=== PATIENT | female | born 1985 | race Caucasian/White ===

== ENCOUNTER 2017-10-08 10:10 | Outpatient (CLI) | payer SELFPAY ==
[~2017-10-08] VITALS: Ht 157.5 cm; Wt 75.0 kg
[~2017-10-08 10:10] MED LIST: ENDOCET 5-3251 EACH PO; MOTRIN800 MG PO; VENTOLIN HFA18 GM IH
[2017-10-08 10:46] VITALS: BP 105/59
[2017-10-08] MEDS ORDERED: PRENATAL TABLE1 EAC3 PO (10:53)
[2017-10-08] MEDS ORDERED: BENADRYL50 MG PO (10:53)
[2017-10-08] MEDS ORDERED: DIFLUCAN150 MG PO (10:55)
== END 2017-10-08 11:48 | disposition home or self-care (01) ==
LOC: LDRP-OP 10:10 → 2WEST 10:11
DX: O36.8190 Decreased fetal movements, unspecified trimester, not applicable or unspecified (principal); Z3A.00 Weeks of gestation of pregnancy not specified
CPT/HCPCS: 59025; G0378

== ENCOUNTER 2017-11-12 18:48 | Inpatient (IN) | payer OTHER ==
[2017-11-12] VITALS (7 sets, daily range): BP systolic 107–125; BP diastolic 61–81
[~2017-11-12] VITALS: Ht 160 cm; Wt 78.4 kg
[~2017-11-12 18:48] MED LIST changes: +BENADRYL50 MG PO; +DIFLUCAN150 MG PO; +PRENATAL TABLE1 EAC3 PO
[2017-11-12] MEDS ORDERED: PROBIOTIC1 EAC1 PO (19:57)
[2017-11-12] MEDS ORDERED: TYLENOL REGULA325 MG PO (19:58)
[2017-11-12 20:10] LABS: BASOPHIL (%) 0.2 % (0-1); EOSINOPHIL (%) 0.7 % (0-5); HEMATOCRIT 30.3 % (36.0-46.0); HEMOGLOBIN 9.6 G/DL (11.9-15.5); IMMATURE GRANULOCYTE (%) 0.3 % (0.0-0.7); LYMPHOCYTE (%) 25.8 % (15-42); LYMPHOCYTE COUNT 1.6 K/uL (1.0-2.8); MCH 28.7 PG (29.0-34.0); MCHC 31.7 G/DL (30.0-36.0); MCV 90.4 FL (83-99); MONOCYTE COUNT 0.4 K/uL (0-0.8); NEUTROPHIL COUNT 4.1 K/uL (1.8-6.4); PLATELET COUNT 171 K/uL (156-360); RBC DIS.WIDTH-SD 45.6 % (39-53); RED BLOOD COUNT 3.35 M/uL (3.80-5.20)
[2017-11-13] VITALS (16 sets, daily range): BP systolic 94–138; BP diastolic 51–80
[2017-11-13] MEDS ORDERED: IBUPROFEN800 MG PO (09:16)
[2017-11-14 06:51] LABS: BASOPHIL (%) 0.3 % (0-1); EOSINOPHIL (%) 1.6 % (0-5); EOSINOPHIL COUNT 0.1 K/uL (0-0.3); HEMOGLOBIN 8.5 G/DL (11.9-15.5); IMMATURE GRANULOCYTE (%) 0.4 % (0.0-0.7); LYMPHOCYTE (%) 28.4 % (15-42); LYMPHOCYTE COUNT 1.9 K/uL (1.0-2.8); MCH 27.8 PG (29.0-34.0); MCHC 30.4 G/DL (30.0-36.0); MCV 91.5 FL (83-99); MONOCYTE (%) 6.9 % (3-12); MONOCYTE COUNT 0.5 K/uL (0-0.8); NEUTROPHIL (%) 62.4 % (45-76); NEUTROPHIL COUNT 4.2 K/uL (1.8-6.4); PLATELET COUNT 154 K/uL (156-360); RBC DIS.WIDTH-CV 14.2 % (11.8-14.6); RBC DIS.WIDTH-SD 47.2 % (39-53); RED BLOOD COUNT 3.06 M/uL (3.80-5.20); WHITE BLOOD COUNT 6.8 K/uL (4.1-10.2)
[2017-11-14 08:00] VITALS: BP 119/72
[2017-11-14] MEDS ORDERED: BREAST PUMP MC (11:21)
== END 2017-11-14 14:30 | disposition home or self-care (01) | DRG 775 ==
LOC: LDRP-OP 18:48 → 2WEST 18:49 → LDRP-OP 12-10 02:07
PROVIDERS: Obstetrics & Gynecology Gynecology
DX: O62.3 Precipitate labor (principal); O99.354 Diseases of the nervous system complicating childbirth; G47.419 Narcolepsy without cataplexy; G43.909 Migraine, unspecified, not intractable, without status migrainosus; Z3A.40 40 weeks gestation of pregnancy; Z37.0 Single live birth; O99.89 Other specified diseases and conditions complicating pregnancy, childbirth and the puerperium; G89.29 Other chronic pain; M79.7 Fibromyalgia; M54.9 Dorsalgia, unspecified; O99.344 Other mental disorders complicating childbirth; F41.9 Anxiety disorder, unspecified
CPT/HCPCS: 85025; C1755; G0378; J7120

== ENCOUNTER 2018-04-12 09:27 | Day surgery (SDC) | payer OTHER ==
[~2018-04-12] VITALS: Ht 157.5 cm; Wt 59.0 kg
[~2018-04-12 09:27] MED LIST changes: +BREAST PUMP MC; +IBUPROFEN800 MG PO; +PERCOCET 5/31 TABLET PO; +PROBIOTIC1 EAC1 PO; +TYLENOL REGULA325 MG PO
[2018-04-12 10:15] VITALS: BP 103/55
[2018-04-12 10:20] LABS: BASOPHIL (%) 0.2 % (0-1); EOSINOPHIL (%) 2.8 % (0-5); EOSINOPHIL COUNT 0.1 K/uL (0-0.3); HEMATOCRIT 36.5 % (36.0-46.0); HEMOGLOBIN 12.3 G/DL (11.9-15.5); IMMATURE GRANULOCYTE (%) 0.2 % (0.0-0.7); LYMPHOCYTE (%) 27.6 % (15-42); LYMPHOCYTE COUNT 1.4 K/uL (1.0-2.8); MCH 30.4 PG (29.0-34.0); MCHC 33.7 G/DL (30.0-36.0); MCV 90.3 FL (83-99); MONOCYTE (%) 5.7 % (3-12); MONOCYTE COUNT 0.3 K/uL (0-0.8); NEUTROPHIL (%) 63.5 % (45-76); NEUTROPHIL COUNT 3.1 K/uL (1.8-6.4); PLATELET COUNT 214 K/uL (156-360); RBC DIS.WIDTH-CV 13.8 % (11.8-14.6); RBC DIS.WIDTH-SD 45.6 % (39-53); RED BLOOD COUNT 4.04 M/uL (3.80-5.20); WHITE BLOOD COUNT 4.9 K/uL (4.1-10.2)
[2018-04-12] MEDS ORDERED: ENDOCET 5-3251 EACH PO (13:05)
[2018-04-12] MEDS ORDERED: IBUPROFEN800 MG PO (13:05)
[2018-04-12 14:38] VITALS: BP 108/68
[2018-04-12 15:40] VITALS: BP 102/58
== END 2018-04-12 15:57 | disposition home or self-care (01) ==
LOC: SDC 09:27
PROVIDERS: Obstetrics & Gynecology
PROC: 0WPG4YZ Removal of Other Device from Peritoneal Cavity, Percutaneous Endoscopic Approach (ICD-10-PCS; principal; 2018-04-12)
DX: T83.32XA Displacement of intrauterine contraceptive device, initial encounter (principal); Y76.2 Prosthetic and other implants, materials and accessory obstetric and gynecological devices associated with adverse incidents
CPT/HCPCS: 84702; 85025; J1170; J2250; J2405; J3010